=== PATIENT | male | born 1990 | race Caucasian/White ===

== ENCOUNTER 2016-10-25 10:39 | Emergency (ER) ==
[2016-10-25 10:46] VITALS: BP 129/80; TEMP 97.8; BMI 26.2
[2016-10-25] MEDS ORDERED: LIDOCAINE 1 % AMP 5 ML (SUTURES) SUBCUT STA (10:49)
--- NOTE | 2016-10-25 11:31 | ED.PDOC ---
General ED Provider: Dr. LOWELL SOTOMAYOR JR Chief Complaint: Abscess Stated Complaint: STATES I HAVE 2 MORE STAPH INFECTIONS. WAS SEEN AT [facility] ON MONDAY AND PUT ON BACTRIM. NOT GETTING BETTER. HAS ABSCESS TO BACK OF LEFT WRIST. RED AND SWOLLEN WITH WHITE SPOTS, SWELLING INTO HAND. PAIN UP INTO ARM. SECOND SPOT TO RIGHT POSTERIOR 5TH FINGER. RED SWOLLEN AND HAS WHITE SPOT TO CENTER. [ End ] Time Seen by Physician: 11:25 Mode of Arrival: Walk-In Information Source: Patient Exam Limitations: No limitations Primary Care Provider: BARBARA FRASER Nursing and Triage Documentation Reviewed and Agree: No Skin Complaint Exam - Skin/Soft Tissue Complaint/Exam Onset/Duration: 4days Symptoms Are: Still present Timing: Constant Initial Severity: Moderate Current Severity: Moderate Location: left fore arm and right middle finger Character: Reports: Redness, Swelling, Raised, Painful Aggravating: Reports: Touch Alleviating: Reports: Medications Associated Signs and Symptoms: Reports: Drainage, Tenderness Related History: Reports: Similar episode Skin Findings: Present: Erythema, Induration, Skin lesion. Absent: Fluctuant mass, Lymphadenopathy, Lymphangitic streaking Joint Tenderness Present: No Differential Diagnoses: Abscess (draining) Review of Systems - Review Of Systems Constitutional: Reports: No symptoms Eyes: Reports: No symptoms Ears, Nose, Mouth, Throat: Reports: No symptoms Respiratory: Reports: No symptoms Cardiac: Reports: No symptoms GI: Reports: No symptoms : Reports: No symptoms Musculoskeletal: Reports: No symptoms Skin: Reports: Lesions, Lumps Neurological: Reports: No symptoms Endocrine: Reports: No symptoms Hematologic/Lymphatic: Reports: No symptoms All Other Systems: Other Past Medical History - Past Medical History Previously Healthy: Yes Endocrine: Reports: None Cardiovascular: Reports: None Respiratory: Reports: None Hematological: Reports: None Gastrointestinal: Reports: None Genitourinary: Reports: None Neuro/Psych: Reports: None Musculoskeletal: Reports: None Cancer: Reports: None - Surgical History General Surgical History: Reports: None - Family History Family History: Reports: None - Social History Smoking Status: Current every day smoker Hx Substance Use: No Alcohol Screening: Occasionally Physical Exam - Physical Exam Appearance: Well-appearing Pain Distress: Moderate Neck: Supple Respiratory: Airway patent Skin: Warm, Dry, Normal color (note two draining abscesses without fluctuance) Psychiatric: Affect appropriate Critical Care Note - Critical Care Note Total Time (mins): 0 Course - Course Orders, Labs, Meds: Orders Category Date Time Status CULTURE WOUND [WOUND CULTURE] Stat LAB 10/25/16 11:15 Received Vital Signs: Temp Pulse Resp BP Pulse Ox 10/25/16 10:39 97.8 F 82 18 129/80 97 Departure - Departure Time of Disposition: 11:25 Disposition: HOME SELF-CARE Discharge Problem: Abscess Instructions: Abscess (ED) Condition: Good Pt referred to PMD for follow-up: Yes Additional Instructions: may use drawing salve if desired (recommend warm soaks four times a day instead) bandage for cleanliness change to clindamycin may call in two days to check culture(correct antibiotic) recheck one week may follow up with [facility] discuss staph elimination with your physician after lesions are clear cleanse whole body with hibiclens or betadine then shower off use intranasal bactroban (to attempt to clear staph colonization) Prescriptions: Chlorhexidine Gluconate [Hibiclens] 118 ml TP ONCE #120 liquid Clindamycin HCl 300 mg PO QID #40 capsule Mupirocin [Bactroban] 1 applic MONIQUE ONCE #1 pkg Allergies/Adverse Reactions: Allergies No Known Allergies Allergy (Verified 10/25/16 10:46) Home Medications: Ambulatory Orders Chlorhexidine Gluconate [Hibiclens] 118 ml TP ONCE #120 liquid 10/25/16 Clindamycin HCl 300 mg PO QID #40 capsule 10/25/16 Mupirocin [Bactroban] 1 applic MONIQUE ONCE #1 pkg 10/25/16 Sulfamethoxazole/Trimethoprim [Bactrim Ds 800/160 mg] 1 tab PO Q12HR 10/25/16
== END 2016-10-25 11:50 | disposition home or self-care (01) ==
LOC: ED 10:39
DX: L02.414 Cutaneous abscess of left upper limb (principal); L02.511 Cutaneous abscess of right hand; A49.02 Methicillin resistant Staphylococcus aureus infection, unspecified site; F17.210 Nicotine dependence, cigarettes, uncomplicated
CPT/HCPCS: 87070; 87186; 99283

== ENCOUNTER 2017-03-10 16:26 | Emergency (ER) ==
[2017-03-10 16:32] VITALS: BP 129/82; TEMP 97.9; BMI 24.0
== END 2017-03-10 17:26 | disposition left against medical advice (07) ==
LOC: ED 16:26
DX: R00.2 Palpitations (principal); R06.02 Shortness of breath; F17.210 Nicotine dependence, cigarettes, uncomplicated